=== PATIENT | male | born 1955 | race Caucasian/White ===

== ENCOUNTER → 2023-09-17 15:17 | Outpatient (REF) | payer MEDICARE, OTHER, SELFPAY | LOC: HWRAD 15:17 | PROVIDERS: ATTENDING PHYSICIAN Nurse Practitioner Family; FAMILY PHYSICIAN Family Medicine | DX: R20.0 Anesthesia of skin (principal) | CPT/HCPCS: 70450 ==

== ENCOUNTER 2023-09-18 12:20 | Emergency (ER) | payer MEDICARE, OTHER, SELFPAY ==
[2023-09-18 12:33] VITALS: BP 100/70
--- NOTE | 2023-09-18 13:46 | ED.GENMED ---
History of Present Illness
General
Chief Complaint: Numbness
Source: patient and spouse
Exam Limitations: none
Time Seen by Provider: 09/18/23 12:57
Nursing documentation reviewed up to this point in time: agreed with
Travel History
Have you had any contact with someone who has COVID-19?: No
Do you have any symptoms of coronavirus? Fever > 100 degrees, chills, cough, shortness of breath, sore throat, loss of taste or smell, muscle aches, or headache?: No
History of Present Illness
History of Present Illness:
68 yo male with h/o HTN, hemochromatosis, presents stating 6 days ago, standing in yard 1:30 p.m. talking to neighbor, felt sudden 'tolbert like the feeling you get when clay band your elbow' R side of face lasting 2 minutes. Went to and sent home as
no symptoms. Told to take Baby ASA daily and Ibuprofen for 3 days incase it was a neck strain.
4 days ago similar episode feeling lower half of face right side lasting 30 seconds.
2 days ago saw PCP CLINICAL REGISTERED NURSE and sent for head CT which was neg for any intracranial abnormalities (report reviewed)
This morning 10 a.m. while opening his pool out in the hot weather, had to sit frequently with SOB and lightheadedness after even light activities. Had another minute episode of R facial tingling.
He typically is intolerant of the heat, gets SOB, dizzy and 'hazy' in vision in the heat like when he golfs, this is not unusual for him. The difference today, according to is that he needed to sit more frequently after even short periods of
exertion and seemed more fatigued.
He is totally asymptomatic at this time.
Denies CP, abd pain, weakness in extremities. Denies fever/chills.
Past History
Past History
ED Past Medical History: HTN and Other (Hemochromatosis)
ED Past Surgical History: Tonsilectomy and Other (Hernia repair as a child)
Social History
Tobacco: Non-smoker
Alcohol: Occasional
Personal:
Living: with family
Employment: Retired
Review of Systems
Review of Systems
Allergies reviewed?: Yes
All Other Systems: ROS reviewed and negative except as documented in HPI and ROS
Constitutional: Denies fever
Respiratory: Reports trouble breathing (Short of breath with exertion out in the heat); Denies cough
Cardiac: Denies chest pain, diaphoresis, palpitations or syncope
ABD/GI: Denies abdominal pain, nausea, vomiting or diarrhea
: Denies dysuria, frequency, difficulty voiding or urgency
Musculoskeletal: Reports no symptoms
Skin: Reports no symptoms
Neurological: Reports numbness (Tingling right side of face as noted in HPI, not they are presently); Denies dizzy, headache or weakness
Phy Exam
Physical Exam
Physical Exam:
GENERAL: No acute distress. A&Ox3.
CONSTITUTIONAL: Afebrile.
EYES: PERRL, conjunctivae normal
Neck: Supple
ENMT: moist mucus membranes, Pharynx nl, teeth intact and good dentition, no oral infection
RESPIRATORY: Regular respirations, nonlabored, lungs clear.
CARDIOVASCULAR: Regular rate and rhythm, no murmurs, no rubs.
GI: Soft, nontender, normal BS
MUSCULOSKELETAL: Moves with ease. Well perfused.
SKIN: Warm, dry, pink
PSYCH: Normal mood and affect. Well kept, interactive and appropriate
NEUROLOGIC: Awake, alert and oriented. Speech clear, CN 2-12 intact. Strength equal throughout. No focal neurological deficits
Course
Orders/Labs/Results
Orders:
Orders
09/18/23 13:47
CRP [C-Reactive Protein] Urgent
Complete Blood Count/With Diff Urgent
Comprehensive Metabolic Panel Urgent
Lyme Progressive Urgent
Sed Rate [Erythrocyte Sed Rate] Urgent
09/18/23 13:53
Electrocardiogram (*1) Urgent
Reason for Study: Shortness of Breath
09/18/23 13:54
EKG [Electrocardiogram (*1)] Urgent
Reason for Study: Fatigue / Weakness
EKG- Treatment ONCE
09/18/23 14:12
NT-proBNP Urgent
Troponin I Urgent
Abnormal Lab Results
09/18/23
13:47
MCH 32.3 H pg
(27.0-31.0)
MPV 11.4 H fL
(7.4-10.4)
Absolute Lymphs (auto) 1.0 L 10^3/uL
(1.2-3.4)
Lymphocytes % 17.0 L %
(20.5-51.1)
Chloride 108 H mmol/L
(98-107)
09/18/23 13:47
09/18/23 13:47
Vital Signs
Initial and Last Documented VS:
Initial Vital Signs
Temp Pulse BP Pulse Ox
98.5 F 80 100/70 95
09/18/23 12:33 09/18/23 12:33 09/18/23 12:33 09/18/23 12:33
Last Documented Vital Signs
Temp Pulse Resp BP Pulse Ox
98.5 F 73 20 165/87 95
09/18/23 12:33 09/18/23 16:01 09/18/23 16:01 09/18/23 16:01 09/18/23 16:01
Seismograph Recorder consulted with Physician
Seismograph Recorder consulted with physician?: Yes
Name of Physician Consulted: Zac
MDM/Problems Addressed
Differential Diagnosis Includes:
TIA, Lyme's, Trigeminal neuralgia, Winters's palsy, paresthesia
Dehydration
MDM/Problems Addressed:
68 yo male with h/o HTN, hemochromatosis, presents stating 6 days ago, standing in yard 1:30 p.m. talking to neighbor, felt sudden 'tolbert like the feeling you get when clay band your elbow' R side of face lasting 2 minutes. Went to and sent home as
no symptoms. Told to take Baby ASA daily and Ibuprofen for 3 days incase it was a neck strain.
4 days ago similar episode feeling lower half of face right side lasting 30 seconds.
2 days ago saw PCP CLINICAL REGISTERED NURSE and sent for head CT which was neg for any intracranial abnormalities (report reviewed)
This morning 10 a.m. while opening his pool out in the hot weather, had to sit frequently with SOB and lightheadedness after even light activities. Had another minute episode of R facial tingling.
He typically is intolerant of the heat, gets SOB, dizzy and 'hazy' in vision in the heat like when he golfs, this is not unusual for him. The difference today, according to is that he needed to sit more frequently after even short periods of
exertion and seemed more fatigued.
He is totally asymptomatic at this time.
Denies CP, abd pain, weakness in extremities. Denies fever/chills.
No dental infection
EKG NSR
Head CT from yesterday reviewed: Radiology report: 1. No intracranial abnormalities appreciated.
2. Minimal mucosal thickening within each maxillary sinus.
2:45p.m.
CBC normal
CMP Normal
ESR and CRP normal
BNP normal
Troponin normal
Pt remains symptom free, negative work up, Referred to Neurology
Case discussed with Dr. Frank who agrees with assessment and plan
Lyme titer pending
*EKG
Interpreted by ED Provider?: Yes
EKG Intrepretation Date: 09/18/23
Interpretation: normal
Rate: normal
Rhythm: sinus
[place]: normal axis
Interval: normal interval
QRS Pattern: normal QRS
Ischemia: no ischemia
*Critical Care Note
Total Time (30-74mins, 75-104mins- exclusive of procedures): Not Applicable
ED Attending Note
-
Portions of this chart may have been created with voice recognition software.� Occasional wrong word or��sound alike� substitutions may have occurred due to the inherent limitations of voice recognition software.
Discharge Plan
Departure
Patient Disposition: Home (Routine Discharge)
Date of Disposition: 09/18/23
Time of Disposition: 15:21
Patient with high blood pressure during this ER visit?: No
Condition: Good
Discharge Problem:
Right facial numbness
Instructions: Paresthesia (DC)
Prescriptions:
No Action
amlodipine 5 MG tablet
5 mg PO DAILY
Patient Comments:
unsure of dose
tamsulosin 0.4 MG capsule
0.4 mg PO DAILY
aspirin 81 MG tablet,chewable
81 mg PO DAILY
fluticasone propionate 1 SPRAY spray,suspension
1 spray intranasal DAILY
Referrals:
Lon August MD [Active] - Next open appointment
Emily Robledo DO [Family Provider] - As needed
Activity Restrictions/Additional Instructions:
As we discussed take a daily baby aspirin.
Call and make appointment for Neurology.
Your workup here today and head CT from yesterday shows nothing worrisome.
Return here immediately for facial droop, weakness on one side of body, difficulty speaking or walking or feeling worse in any way.
Drink plenty of water when out in the heat
You Lyme test won't be back until next week. We will notify you if positive
Interventions
Interventions:
*Risk Screen - Suicide Last Done: 09/18/23 12:37
*General Assessment Last Done: 09/18/23 12:37
*Neglect/Abuse Screening Last Done: 09/18/23 12:37
ED- Fall Risk Assessment Last Done: 09/18/23 16:00
*ED COVID-19 Vaccine History Last Done: 09/18/23 16:00
*Nursing Disposition Last Done: 09/18/23 16:01
ED- Neurological Assessment Last Done: 09/18/23 14:19
Discharge Date and Time
Discharge Date/Time: 09/18/23 16:02
Print Language: [id number]
[2023-09-18 13:51] VITALS: BP 145/79
[2023-09-18 13:59] LABS: % Basophils 0.2 % (0-2); % Eosinophils 0.7 % (0-6); % Immature Granulocytes 0.2 % (0-0.5); % Monocytes 9.3 % (1.7-9.3); % Neutrophils 72.6 % (42.2-75.2); Absolute Monocytes 0.6 10^3/uL (0.1-0.6); Absolute Neutrophils 4.4 10^3/uL (1.4-6.5); Hematocrit 41.9 % (39.0-52.0); Hemoglobin 15.4 g/dL (13.0-18.0); Mean Corp Hgb Conc. 36.8 g/dL (33.0-37.0); Mean Corpuscular Hgb 32.3 pg (27.0-31.0); Mean Corpuscular Volume 87.8 fL (80.0-94.0); Mean Platelet Volume 11.4 fL (7.4-10.4); Nucleated Red Blood Cells % 0 % (-); Platelet Count 152 10^3/uL (130-400); Red Blood Cell Count 4.77 10^6/uL (4.70-6.10); Red Cell Dist. Width 12.4 % (11.5-14.5)
[2023-09-18 14:00] VITALS: BP 154/85
[2023-09-18 14:13] LABS: Erythrocyte Sed Rate 2 mm/hour (0-20)
[2023-09-18 14:14] LABS: ALT (SGPT) 23 U/L (0-50); AST (SGOT) 20 U/L (17-59); Alkaline Phosphatase 56 U/L (38-126); Blood Urea Nitrogen 20 mg/dl (9-20); Calcium 9.2 mg/dl (8.4-10.2); Carbon Dioxide 25 mmol/L (22-30); Chloride 108 mmol/L (98-107); Glucose 92 mg/dl (70-99); Potassium 4.2 mmol/L (3.5-5.1); Sodium 139 mmol/L (135-145); Total Bilirubin 1.3 mg/dl (0.2-1.3); Total Protein 6.5 g/dl (6.3-8.2); eGFR > 60.00
[2023-09-18 14:17] LABS: C-Reactive Protein < 5.00 mg/L (0.0-10.00)
[2023-09-18 14:19] VITALS: BMI 28.3
[2023-09-18 14:51] LABS: Troponin I < 0.012 ng/ml
[2023-09-18 14:55] LABS: NT-proBNP 160 pg/ml
[2023-09-18 16:01] VITALS: BP 165/87
[2023-09-20 14:14] LABS: Lyme Antibody Screen, EIA Negative (Negative)
== END 2023-09-18 16:02 | disposition home or self-care (01) ==
LOC: EMR 12:20
PROVIDERS: Registered Nurse; EMERGENCY PHYSICIAN Student in an Organized Health Care Education/Training Program; FAMILY PHYSICIAN Family Medicine
DX: R20.0 Anesthesia of skin (principal); I10 Essential (primary) hypertension; E83.119 Hemochromatosis, unspecified; Z79.82 Long term (current) use of aspirin
CPT/HCPCS: 99283; 80053; 83880; 84484; 85025; 85652; 86140; 86618; 93005